=== PATIENT | female | born 1955 | race Caucasian/White ===

== ENCOUNTER 2023-05-08 07:36 | Day surgery (SDC) | payer MEDICARE, OTHER ==
[2023-05-06 10:40] VITALS: BMI 22.3
[2023-05-08] MEDS ORDERED: Methylene Blue 50 MG/10 ML AMPUL ONE ×2 (10:28→11:24)
[2023-05-08] MEDS ORDERED: Bacitracin Zinc Ointment 30 gm TUBE ONE (10:28)
[2023-05-08] MEDS ORDERED: Bupivacaine HCl 0.5%/Epinephrine 1:200,000/PF 30 ml Vial ONE (10:28)
[2023-05-08] MEDS ORDERED: Lidocaine 2% PF 5 ML VIAL ONE (10:28)
[2023-05-08] MEDS ORDERED: fentaNYL 50 mcg/mL 1 mL Vial ONE (11:02)
[2023-05-08] MEDS ORDERED: cefOXitin 2 GM VIAL ONE (11:09)
[2023-05-08] MEDS ORDERED: Sodium Chloride 0.9% 100 ML ONE (11:09)
[2023-05-08] MEDS ORDERED: Rocuronium Bromide 10 MG/ML (10ML VIAL) ONE (11:22)
[2023-05-08] MEDS ORDERED: Ondansetron PF 4 MG/2 ML Vial ONE (11:22)
[2023-05-08] MEDS ORDERED: PROPOFOL 200 MG/20 ML VIAL ONE (11:22)
[2023-05-08] MEDS ORDERED: Lidocaine 1% PF 5 ML VIAL ONE (11:22)
[2023-05-08] MEDS ORDERED: SUGAMMADEX SODIUM 200 MG/2 ML VIAL ONE (12:08)
== END 2023-05-08 14:25 | disposition home or self-care (01) ==
LOC: SDC 07:36
PROVIDERS: ATTEND Surgery
PROC: 0WQF0ZZ Repair Abdominal Wall, Open Approach (ICD-10-PCS; principal; 2023-05-08)
DX: K60.3 Anal fistula (principal); E06.3 Autoimmune thyroiditis; Z91.013 Allergy to seafood; Z79.890 Hormone replacement therapy
CPT/HCPCS: 46280; 87070; 87075; 87205; J3010; Q9968; J0694; J2001; J2405; J2704; J3490

== ENCOUNTER 2025-07-05 10:49 | Outpatient (CLI) | payer MEDICARE, OTHER | END 2025-07-05 10:50 | disposition home or self-care (01) | LOC: BICMAMMO 10:49 | PROVIDERS: ATTEND Family Medicine | DX: Z78.0 Asymptomatic menopausal state (principal); Z79.890 Hormone replacement therapy; M85.851 Other specified disorders of bone density and structure, right thigh; M85.852 Other specified disorders of bone density and structure, left thigh | CPT/HCPCS: 77080 ==